=== PATIENT | female | born 1965 | race Caucasian/White ===

== ENCOUNTER → 2017-03-12 | Outpatient (CLI) | payer OTHER ==
[2017-03-12 08:30] LABS: BASOPHILS # (AUTO) 0.1 X10^3/uL (0.0-0.1); BASOPHILS % (AUTO) 1.2 % (0.2-1.0); EOSINOPHILS # (AUTO) 0.2 x10^3/uL (0.0-0.2); EOSINOPHILS % (AUTO) 3.1 % (0.9-2.9); HEMATOCRIT 41.8 % (36.0-47.0); HEMOGLOBIN 14.2 g/dL (12.0-16.0); LYMPHOCYTES # (AUTO) 2.2 X10^3/uL (1.3-2.9); LYMPHOCYTES % (AUTO) 29.6 % (21.0-51.0); MEAN CORPUSCULAR HEMOGLOBIN 29.7 pg (27.0-34.0); MEAN CORPUSCULAR HGB CONC 33.9 g/dL (33.0-35.0); MEAN CORPUSCULAR VOLUME 87.6 fL (80.0-100.0); MEAN PLATELET VOLUME 8.8 fL (7.4-11.0); MONOCYTES # (AUTO) 0.5 x10^3/uL (0.3-0.8); MONOCYTES % (AUTO) 6.9 % (0.0-13.0); NEUTROPHILS # (AUTO) 4.4 x10^3/uL (2.2-4.8); NEUTROPHILS % (AUTO) 59.2 % (42.0-75.0); PLATELET COUNT 238 X10^3/uL (150.0-450.0); RED BLOOD COUNT 4.77 X10^6/uL (3.5-5.4); RED CELL DISTRIBUTION WIDTH 13.1 % (11.6-16.5); WHITE BLOOD COUNT 7.5 X10^3/uL (3.6-10.0)
[2017-03-12 08:44] LABS: ALANINE AMINOTRANSFERASE 25 Units/L (12-78); ALKALINE PHOSPHATASE 52 Units/L (46-116); ASPARTATE AMINO TRANSFERASE 18 Units/L (15-37); BLOOD UREA NITROGEN 12 mg/dL (7-18); CALCIUM 8.5 mg/dL (8.5-10.1); CARBON DIOXIDE 28.9 mmol/L (21-32); CHLORIDE 106 mmol/L (98-107); CREATININE 0.71 mg/dL (0.55-1.02); LIPASE 145 Units/L (73-393); SODIUM 143 mmol/L (136-145); TOTAL PROTEIN 6.7 g/dL (6.4-8.2); eGFR BLACK RACES > 60 (>60); eGFR NON BLACK RACES > 60 (>60)
[2017-03-12 09:19] LABS: ERYTHROCYTE SEDIMENTATION RATE 1 MM/HOUR (0-20)
[2017-03-14 06:38] LABS: VITAMIN D 25 OH 45 ng/mL (30-80)
[2017-03-14 06:39] LABS: ANTI-NUCLEAR ANTIBODY TEST None Detected (None Detected)
== END ==
LOC: LAB 07:23
PROVIDERS: ATTEND Nurse Practitioner Family
DX: E89.40 Asymptomatic postprocedural ovarian failure (principal); R11.0 Nausea; M46.09 Spinal enthesopathy, multiple sites in spine; R19.7 Diarrhea, unspecified
CPT/HCPCS: 36415; 80053; 82270; 82306; 82607; 82670; 83001; 83690; 85025; 85652; 86308; 86628; 87045; 87338; 87427; 87493; 87899

== ENCOUNTER → 2017-05-23 | Outpatient (CLI) | payer OTHER ==
--- NOTE | 2017-05-25 11:44 | MG ---
HISTORY: SCREENING Comparison: 06/01/2016, 05/10/2016, 03/17/2015 FINDINGS: CC and MLO projections of the right and left breast were obtained. Heterogeneously dense fibroglandu lar tissue is present. No significant architectural distortion, mass or clustered microcalcification s can be observed to suggest malignancy. No skin thickening or nipple retraction is appreciated. N o pathological lymphadenopathy can be identified. Punctate benign calcifications are noted bilaterall y. IMPRESSION: NO RADIOGRAPHIC EVIDENCE OF MALIGNANCY. ACR CATEGORY 2: Benign findings. FOLLOW-UP EXAM 1 YEAR. Diagnostic CAD was utilized and reviewed. * 0 (ZERO) - ASSESSMENT INCOMPLETE; ADDITIONAL IMAGING IS NEEDED. * 1/ (ONE) - NEGATIVE. * 2/II (TWO) - BENIGN FINDINGS. * 3/III (THREE) - PROBABLY BENIGN FINDING; SHORT INTERVAL FOLLOW-UP SUGGESTED. * 4/IV (FOUR) - SUSPICIOUS ABNORMALITY; BIOPSY SHOULD BE CONSIDERED. * 5/V - HIGHLY SUSPICIOUS OF MALIGNANCY; BIOPSY SHOULD BE PERFORMED. A NEGATIVE X-RAY REPORT SHOULD NOT DELAY BIOPSY IF A DOMINANT OR CLINICALLY SUSPICIOUS MASS IS PRESENT; 4 TO 8 PERCENT OF CANCERS ARE NOT IDENTIFIED BY X-RAY. A NEGA TIVE REPORT MAY REINFORCE THE CLINICAL IMPRESSION. ADENOSIS AND DENSE BREASTS MAY OBSCURE AN UNDERLY ING NEOPLASM. Reported By:
== END ==
LOC: RAD 09:16
PROVIDERS: ATTEND Obstetrics & Gynecology
DX: Z12.31 Encounter for screening mammogram for malignant neoplasm of breast (principal)
CPT/HCPCS: 77067

== ENCOUNTER → 2017-06-04 | Outpatient (CLI) | payer OTHER ==
--- NOTE | 2017-06-04 11:55 | RAD ---
Examination: Lumbar spine, AP and lateral views History: Low back pain Findings: There is marked narrowing of the L4-5 interspace. There may be minimal retrolisthesis at th is level. No bone destruction, fracture or sacroiliac disease is appreciated. Impression: Significant degree of degenerative disc disease at the L4-5 level. No acute abnormality i dentified. Reported By:
== END | disposition home or self-care (01) | DRG 552 ==
LOC: RAD 11:04
PROVIDERS: ATTEND Nurse Practitioner Family
DX: M54.5 Low back pain (principal); M51.36 Other intervertebral disc degeneration, lumbar region
CPT/HCPCS: 72100

== ENCOUNTER → 2017-06-15 | Outpatient (CLI) | payer OTHER ==
--- NOTE | 2017-06-19 16:19 | MRI ---
HISTORY: Low back pain Study: MRI lumbar spine without contrast Comparison: Lumbar radiographs performed on 06/04/2017 Technique: Multiplanar multi-sequence MRI of the lumbar spine was obtained. Sagittal T1, sagittal T2 , and stir weighted images, axial T1, and axial T2 images were obtained. Findings: Imaging of the lumbar spine demonstrates very mild grade 1 retrolisthesis of L4 on L5, likely seconda ry to facet hypertrophy and degenerative disc disease at this level. Vertebral body height is maintai lorie throughout. No acute or chronic compression fracture is visualized. Multilevel disc desiccation i s noted. There is mild loss of disc space height at L3-L4 and L4-5 levels. Degenerative endplate osborne ges with associated reactive edema are present at the L4-L5 and L5-S1 levels. The conus terminates at the L2 superior endplate. Evaluation of the pre and paravertebral soft tissues is unremarkable. T12 -- L1: The T12-L1 level is unremarkable. L1 -- L2: The L1-L2 level is unremarkable. L2 -- L3: At the L2-L3 level there is mild facet hypertrophy without significant canal stenosis or ne uroforaminal compromise. L3 -- L4: At the L3-L4 level there is a mild broad-based disc bulge as well as facet hypertrophy, res ulting in minimal bilateral neuroforaminal compromise but no significant canal stenosis. A small génesis lar fissure is noted within the right lateral aspect of the disc at this level. L4 -- L5: At the L4-L5 level there is a broad-based disc bulge with a slight left lateral recess pred ominance as well as facet hypertrophy, resulting in mild bilateral neuroforaminal compromise but no s ignificant canal stenosis. Small bilateral facet joint effusions are noted. L5 -- S1: At the L5-S1 level there is a small left paracentral disc protrusion superimposed upon a mi ld broad-based disc bulge as well as facet hypertrophy, all resulting in mild to moderate neuroforami nal compromise on the right but no significant canal stenosis. An annular fissure is present at this level as well. Additionally, there is a 6 mm synovial cyst along the medial aspect of the facet joint but non exhibiting significant mass effect upon the adjacent thecal sac. IMPRESSION: 1. Multilevel degenerative disc disease and facet arthropathy as detailed above, most significant at the L5-S1 level, there is [id number] neuroforaminal compromise on the right. Mild neuroforamina l compromise noted at other levels as described above. 2. Small annular fissures at the L4-L5 and L5-S1 levels. Reported By:
== END | disposition home or self-care (01) | DRG 552 ==
LOC: RAD 10:39
PROVIDERS: ATTEND Nurse Practitioner Family
DX: M54.5 Low back pain (principal); M51.36 Other intervertebral disc degeneration, lumbar region; M51.37 Other intervertebral disc degeneration, lumbosacral region
CPT/HCPCS: 72148